=== PATIENT | female | born 1950 | race Hispanic/Latino ===

== ENCOUNTER 2017-02-28 09:25 | Day surgery (SDC) | payer MEDICARE, BC ==
[2016-12-19 11:08] VITALS: BMI 27.2
[2017-02-28] MEDS ORDERED: Propofol 10 mg/ml Inj (20 ML) ONE (09:55)
[2017-02-28 10:54] VITALS: RESP 16
[2017-02-28 11:31] VITALS: O2SAT 100
[2017-02-28 11:39] VITALS: BP 133/80; PULSE 58; TEMP 97.8
== END 2017-02-28 12:24 | disposition home or self-care (01) ==
LOC: ENDO 09:25
PROVIDERS: ATTEND Specialist
DX: K31.7 Polyp of stomach and duodenum (principal); K21.0 Gastro-esophageal reflux disease with esophagitis; D64.9 Anemia, unspecified; J45.909 Unspecified asthma, uncomplicated; I25.10 Atherosclerotic heart disease of native coronary artery without angina pectoris; E78.00 Pure hypercholesterolemia, unspecified; F32.9 Major depressive disorder, single episode, unspecified; F41.9 Anxiety disorder, unspecified
CPT/HCPCS: 43239; 43251; 88305; 88312; 88342; J2001; J2704; J3010; J7040

== ENCOUNTER 2018-10-22 11:29 | Observation (INO) | payer MEDICARE, BC ==
[2018-10-22 11:43] VITALS: BMI 30.2
[2018-10-22] MEDS ORDERED: Albuterol-Ipratrop 3 mg / 0.5 (3 ml) UD IH STA ×3 (11:58→15:26)
[2018-10-22 12:32] LABS: BASO # 0.02 K/mm3 (0.0-2.0); BASO % 0.2 % (0.0-3.0); EOS # 0.2 (0.0-0.7); EOS % 1.8 % (1.5-5.0); GRAN # 9.03 (1.4-6.5); GRAN % 83.3 % (50.0-68.0); HEMOGLOBIN 12.7 g/dL (12.0-16.0); LYMPH # 0.9 (1.2-3.4); MEAN CELL VOLUME 91.4 fl (80.0-105.0); MEAN CORPUSCULAR HEMOGLOBIN 30.5 pg (25.0-35.0); MEAN CORPUSCULAR HGB CONC 33.3 g/dl (31.0-37.0); MEAN PLATELET VOLUME 8.7 fl (7.0-11.0); MONO # 0.7 (0.1-0.6); MONO % 6.7 % (1.0-6.0); RBC 4.17 10^6/uL (3.5-6.1); RED CELL DISTRIBUTION WIDTH 12.3 % (11.5-14.5); WHITE BLOOD COUNT 10.9 10^3/uL (4.5-11.0)
--- NOTE | 2018-10-22 12:33 | ED PDOC ---
Arrival/HPI - General Chief Complaint: Cough, Cold, Congestion Time Seen by Provider: 10/22/18 11:44 Historian: Patient - History of Present Illness Narrative History of Present Illness (Text): 10/22/18 11:58 67 year old female, with past medical history of asthma, presents to the Emergency department complaining of worsening chest tightness and wheezing since last few days. Patient reports exacerbation of symptoms especially when going to bed, associated with persistent non-productive cough. Patient reports visiting her PMD with the presented symptoms, who subsequently referred patient to the ED for breathing treatments and medical evaluation. As per patient, symptoms are similar to her past episodes of asthma, which usually subside with breathing treatments and steroids. Patient denies any other medical complaints. Patient denies any fevers, chills, headache, dizziness, chest pain, abdominal pain, nausea, vomiting, diarrhea, back pain, neck pain, or any other complaints. PMD: Dr. Lundy Time/Duration: < week Symptom Onset: Gradual Symptom Course: Unchanged Quality: Tightness Activities at Onset: Light Context: Home Past Medical History - Provider Review Nursing Documentation Reviewed: Yes - Infectious Disease Hx of Infectious Diseases: None - Tetanus Immunization Tetanus Immunization: Unknown - Reproductive Menopause: Yes - Cardiac Hx Hypertension: Yes Hx Pacemaker: No - Pulmonary Hx Asthma: Yes - Neurological Hx Paralysis: No - Hematological/Oncological Hx Blood Transfusions: No Hx Blood Transfusion Reaction: No - Musculoskeletal/Rheumatological Hx Musculoskeletal Disorders: Yes (OSTEOPENIA) - Gastrointestinal Hx Gastrointestinal Disorders: Yes Hx Gastroesophageal Reflux: Yes - Psychiatric Hx Anxiety: Yes Hx Depression: Yes Hx Emotional Abuse: No Hx Physical Abuse: No Hx Substance Use: No - Past Surgical History Past Surgical History: No Previous - Surgical History Hx Coronary Stent: Yes (X1) - Anesthesia Hx Anesthesia: Yes Hx Anesthesia Reactions: No Hx Malignant Hyperthermia: No - Suicidal Assessment Feels Threatened In Home Enviroment: No Family/Social History - Physician Review Nursing Documentation Reviewed: Yes Family/Social History: Unknown Family HX Smoking Status: Former Smoker Hx Alcohol Use: Yes (OCCASIONAL WINE) Hx Substance Use: No Allergies/Home Meds Allergies/Adverse Reactions: Allergies No Known Allergies Allergy (Verified 10/22/18 11:53) Home Medications: Home Meds Medication Instructions Recorded Confirmed ALPRAZolam HALF TABLET [Xanax HALF 0.25 mg PO PRN PRN 12/19/16 02/28/17 TABLET] Albuterol HFA [Ventolin HFA 90 2 puff IH COUNT INCLUDES THE [facility] 12/19/16 02/28/17 mcg/actuation (8 g)] Aspirin [Ecotrin] 81 mg PO DAILY 12/19/16 02/28/17 Aspirin/Dipyridamole [Aggrenox 25 1 cer PO BID 12/19/16 02/28/17 MG-200 MG] Beclomethasone Dipropionate [Qvar 2 puff IH COUNT INCLUDES THE [facility] 12/19/16 02/28/17 80 mcg] Escitalopram [Lexapro] 10 mg PO QAM 12/19/16 02/28/17 Lansoprazole [Prevacid] 15 mg PO QAM 12/19/16 02/28/17 Metoprolol Succinate XL [Toprol XL] 25 mg PO COUNT INCLUDES THE [facility] 12/19/16 02/28/17 Rosuvastatin Calcium [Crestor] 40 mg PO COUNT INCLUDES THE [facility] 12/19/16 02/28/17 Review of Systems - Physician Review All systems were reviewed & negative as marked: Yes - Review of Systems Constitutional: absent: Fevers Respiratory: SOB, Cough Cardiovascular: absent: Chest Pain Gastrointestinal: absent: Abdominal Pain, Diarrhea, Nausea, Vomiting Genitourinary Female: absent: Dysuria, Urine Output Changes Musculoskeletal: absent: Back Pain, Neck Pain Skin: absent: Rash Neurological: absent: Headache, Dizziness Physical Exam Vital Signs Reviewed: Yes Vital Signs Temp Pulse Resp BP Pulse Ox 10/22/18 11:42 98.1 F 92 H 20 129/72 90 L Temperature: Afebrile Blood Pressure: Normal Pulse: Regular Respiratory Rate: Normal Appearance: Positive for: Well-Appearing, Non-Toxic, Comfortable Pain Distress: None Mental Status: Positive for: Alert and Oriented X 3 - Systems Exam Head: Present: Atraumatic, Normocephalic Pupils: Present: PERRL Extroacular Muscles: Present: EOMI Conjunctiva: Present: Normal Neck: Present: Normal Range of Motion Respiratory/Chest: Present: Wheezes (High piched expiratory and inspiratory wheeze), Decreased Breath Sounds, Tachypneic (Mildly tachypneic). No: Respiratory Distress, Accessory Muscle Use Cardiovascular: Present: Regular Rate and Rhythm, Normal S1, S2. No: Murmurs Abdomen: No: Tenderness, Distention, Peritoneal Signs Back: Present: Normal Inspection Upper Extremity: Present: Normal Inspection. No: Cyanosis, Edema Lower Extremity: Present: Normal Inspection. No: Edema Neurological: Present: GCS=15, CN II-XII Intact, Speech Normal Skin: Present: Warm, Dry, Normal Color. No: Rashes Psychiatric: Present: Alert, Oriented x 3, Normal Insight, Normal Concentration Medical Decision Making ED Course and Treatment: 10/22/18 11:50 Impression: 67 year old female presents to the Emergency department complaining of wheezing since last few days. Differential Diagnosis included but are not limited to: Asthma exacerbation Plan: -- EKG -- Chest X-ray -- Albuterol -- Solumedrol -- Reassess and disposition Prior Visits: Notes and results from previous visits were reviewed. Progress Notes: 10/22/18 11:39 EKG reviewed by me, shows NSR @ 99bpm, nml intervals and nml axis. No st elevations, no t wave changes. 10/22/18 13:09 Chest X-ray reviewed by radiologist, shows no active disease. Patient given duoneb x3 throughout ED course. 125mg solumedrol ivp also given. On re-eval patient states that she feels better. However when nasal cannula removed patient desaturates to 90-92% on RA. When she ambulates, she desaturates further, into the 80's. She also states that she still feels winded while ambulating. Thus decision made to admit. Patient amenable to this plan. Case discussed with RN for Dr. Lundy, agrees with plan for admission. 10/22/18 17:28 Discussed case with hospitalist Dr. Black, who is aware and agrees with ED management plan, accepts patient under their service. - RAD Interpretation Radiology Orders: 10/22/18 11:58 CHEST PORTABLE [RAD] Stat Java Lead Architect: Radiologist - EKG Interpretation Interpreted by ED Physician: Yes Type: 12 lead EKG - Medication Orders Current Medication Orders: Discontinued Medications Albuterol/Ipratropium (Duoneb 3 Mg/0.5 Mg (3 Ml) Ud) 3 ml IH STAT STA Stop: 10/22/18 11:59 Methylprednisolone (Solu-Medrol) 125 mg IVP STAT STA Stop: 10/22/18 11:59 - Scribe Statement The provider has reviewed the documentation as recorded by the Scribe Tasfia Juanis. All medical record entries made by the Dario were at my direction and personally dictated by me. I have reviewed the chart and agree that the record accurately reflects my personal performance of the history, physical exam, medical decision making, and the department course for this patient. I have also personally directed, reviewed, and agree with the discharge instructions and disposition. Disposition/Present on Arrival - Present on Arrival Any Indicators Present on Arrival: No History of DVT/PE: No History of Uncontrolled Diabetes: No Urinary Catheter: No History of Decub. Ulcer: No History Surgical Site Infection Following: None - Disposition Have Diagnosis and Disposition been Completed?: Yes Diagnosis: Asthma exacerbation Disposition Time: 17:30 Condition: STABLE Referrals: Burt Lundy MD [Primary Care Provider] - Follow up with primary Forms: [employer] (Estonian)
[2018-10-22 12:43] LABS: BLOOD UREA NITROGEN 16 mg/dL (7-21); CALCIUM 9.4 mg/dL (8.4-10.5); GFR NON-AFRICAN AMERICAN > 60
--- NOTE | 2018-10-22 12:52 | RAD ---
Date of service: 10/22/2018 HISTORY: dyspnea COMPARISON: 12/06/2017 FINDINGS: LUNGS: No active pulmonary disease. PLEURA: No significant pleural effusion identified, no pneumothorax apparent. CARDIOVASCULAR: Minimal aortic calcification Mild cardiomegaly no pulmonary vascular congestion. OSSEOUS STRUCTURES: No significant abnormalities. VISUALIZED UPPER ABDOMEN: Normal. OTHER FINDINGS: None. IMPRESSION: No active disease.
[2018-10-22] MEDS ORDERED: Albuterol-Ipratrop 3 mg / 0.5 (3 ml) UD IH PRN (18:39)
--- NOTE | 2018-10-22 18:46 | CARD ---
APPROVED REPORT Date of service: 10/22/2018 EKG Measurement Heart [id number] <Conclusion> Normal sinus rhythm Low voltage QRS Borderline ECG
--- NOTE | 2018-10-22 18:50 | CP.PCM.HP ---
<Royal Batista - Last Filed: 10/22/18 20:12> History of Present Illness - History of Present Illness History of Present Illness: Royal Batista, PGY-1 History and Physical for the Hospitalist Service Ms. Croft is a 67 F with PMHx of asthma who presents with chest tightness and shortness of breath that began last night. Patient reports that she was sleeping and was awoken by consistent nonproductive cough. Patient states that she visited her PCP earlier this morning who then told her to come to ED for evaluation and treatment. Patient reports shortness of breath, sinus pressure and chest tightness is similar to earlier episodes of asthma that usually resolves with breathing treatments and steroids. Patient denies chest pain, dizziness, headache, abdominal pain, nausea, vomiting, back pain, changes in urinary or bowel habits. Patient reports that she is awoken from sleep about 3-4 times per month from asthma and uses her rescue inhaler on those ocassions. She denies ever being hospitalized before for these exacerbations. Patient has never been intubated. Patient reports that she experiences these episodes usually around changes in season once or twice a year controlled by medications and inhalers. PMHx: Asthma, CVA 2013 without residual deficit PSHx: denies All: denies Meds: see MAR Social: former smoker 1pk/day x25 years, quit 20 years ago, denies ETOH and tobacco PCP: Dr. Merino Present on Admission - Present on Admission Any Indicators Present on Admission: No Review of Systems - Review of Systems Review of Systems: 12 point ROS completed and negative except as described in HPI. Past Patient History - Infectious Disease Hx of Infectious Diseases: None - Tetanus Immunizations Tetanus Immunization: Unknown - Past Social History Smoking Status: Former Smoker - CARDIAC Hx Hypertension: Yes Hx Pacemaker: No - PULMONARY Hx Asthma: Yes - NEUROLOGICAL Hx Paralysis: No - HEMATOLOGICAL/ONCOLOGICAL Hx Blood Transfusions: No Hx Blood Transfusion Reaction: No - MUSCULOSKELETAL/RHEUMATOLOGICAL Hx Musculoskeletal Disorders: Yes (OSTEOPENIA) - GASTROINTESTINAL Hx Gastrointestinal Disorders: Yes Hx Gastroesophageal Reflux: Yes - PSYCHIATRIC Hx Anxiety: Yes Hx Depression: Yes Hx Emotional Abuse: No Hx Physical Abuse: No Hx Substance Use: No - SURGICAL HISTORY Hx Coronary Stent: Yes (X1) - ANESTHESIA Hx Anesthesia: Yes Hx Anesthesia Reactions: No Hx Malignant Hyperthermia: No Meds Allergies/Adverse Reactions: Allergies Allergy/AdvReac Type Severity Reaction Status Date / Time No Known Allergies Allergy Verified 10/22/18 11:53 Physical Exam - Constitutional Appears: Well, Non-toxic, No Acute Distress - Head Exam Head Exam: ATRAUMATIC, NORMAL INSPECTION, NORMOCEPHALIC - Eye Exam Eye Exam: EOMI, Normal appearance Pupil Exam: PERRL - ENT Exam ENT Exam: Mucous Membranes Moist - Neck Exam Neck exam: Positive for: Normal Inspection - Respiratory Exam Respiratory Exam: Decreased Breath Sounds, Wheezes, NORMAL BREATHING PATTERN - Cardiovascular Exam Cardiovascular Exam: RRR, +S1, +S2 - GI/Abdominal Exam GI & Abdominal Exam: Soft. absent: Distended, Firm, Guarding, Rebound, Rigid, Tenderness - Extremities Exam Extremities exam: Positive for: full ROM. Negative for: joint swelling, pedal edema - Back Exam Back exam: absent: CVA tenderness (L), CVA tenderness (R), paraspinal tenderness - Neurological Exam Neurological exam: Alert, Oriented x3 - Psychiatric Exam Psychiatric exam: Normal Affect, Normal Mood - Skin Skin Exam: Dry, Intact, Normal Color, Warm Results - Vital Signs Recent Vital Signs: Last Vital Signs Temp 98.1 F 10/22/18 11:42 Pulse 91 H 10/22/18 16:10 Resp 18 10/22/18 16:10 BP 148/84 10/22/18 16:10 Pulse Ox 95 10/22/18 16:10 - Labs Result Diagrams: 10/22/18 12:10 10/22/18 12:10 Labs: Laboratory Results - last 24 hr 10/22/18 10/22/18 12:10 12:10 WBC 10.9 RBC 4.17 Hgb 12.7 Hct 38.1 MCV 91.4 MCH 30.5 MCHC 33.3 RDW 12.3 Plt Count 247 MPV 8.7 Gran % 83.3 H Lymph % (Auto) 8.0 L [place] % (Auto) 6.7 H Eos % (Auto) 1.8 Baso % (Auto) 0.2 Gran # 9.03 H Lymph # (Auto) 0.9 L [place] # (Auto) 0.7 H Eos # (Auto) 0.2 Baso # (Auto) 0.02 Sodium 140 Potassium 4.1 Chloride 104 Carbon Dioxide 27 Anion Gap 12 BUN 16 Creatinine 0.7 Est GFR ( Amer) > 60 Est GFR (Non-Af Amer) > 60 Random Glucose 115 H Calcium 9.4 Assessment & Plan - Assessment and Plan (Free Text) Assessment: 67 F with PMHx of asthma who presents with asthma exacerbation. Patient currently on nasal cannula with improvement of symptoms. Asthma Exacerbation On 2 L NC, wheezing, improved shortness of breath from admission Duonebs q6 scheduled and q2 PRN Solu-medrol 40 mg IV q8 Flonase f/u AM labs Cough Robitussin DM 10 q4h PRN Hx of CVA ASA 81 Aggrenox 25-200 BID Toprol XL 25 mg AM HLD F/u home med Crestor 40 mg AM Anxiety Xanax 0.25 q8 PRN Lexapro 10 mg in AM Diet HHD GI/DVT ppx Protonix 40 mg SCDs Patient seen, case reviewed, and plan approved by Dr. Moctezuma. Royal Batista, PGY-1 <Earnestine Black - Last Filed: 10/23/18 14:40> Results - Vital Signs Recent Vital Signs: Last Vital Signs Temp 97.6 F 10/23/18 12:00 Pulse 79 10/23/18 12:00 Resp 20 10/23/18 12:00 BP 133/77 10/23/18 12:00 Pulse Ox 97 10/23/18 05:51 - Labs Result Diagrams: 10/23/18 05:30 10/23/18 05:30 Labs: Laboratory Results - last 24 hr 10/23/18 10/23/18 05:30 05:30 WBC 7.8 D RBC 3.86 Hgb 11.6 L Hct 35.3 L MCV 91.5 MCH 30.1 MCHC 32.9 RDW 12.6 Plt Count 262 MPV 8.8 Sodium 139 Potassium 4.4 Chloride 105 Carbon Dioxide 27 Anion Gap 12 BUN 17 Creatinine 0.7 Est GFR ( Amer) > 60 Est GFR (Non-Af Amer) > 60 Random Glucose 132 H Calcium 9.5 Attending/Attestation - Attestation I have personally seen and examined this patient.: Yes I have fully participated in the care of the patient.: Yes I have reviewed all pertinent clinical information: Yes Notes (Text): 10/23/18 14:34 attending note; Patient seen and examined with resident in ER. Patient is alert and awake. Complaining of cough and wheezing. Patient also complaining of exertional dyspnea. denies any fevers, chills. Denies any sputum production. Denies any urinary, bowel complaints. Patient is a 67 year old Female with PMHx of asthma, TIA, anxiety depression is admitted with acute asthma exacerbation. Patient denies any fevers, chills. Respiratory status is improving after DuoNeb treatment on IV steroids. Admit to remote telemetry. Monitor closely. Continue oxygen. Cough; continue Robitussin. Continue GI prophylaxis with Protonix. anxiety depression; continue Xanax and lexapro. upon discharge patient will follow up with PMD Dr. merino.
[2018-10-22] MEDS: Aspirin-Dipyridamole 200-25 mg ER Cap PO SCH (19:19)
[2018-10-22] MEDS: Albuterol-Ipratrop 3 mg / 0.5 (3 ml) UD IH SCH (20:40)
[2018-10-22] MEDS: MethylPREDNISolone 40 mg Vial IVP SCH (22:26)
[2018-10-23] MEDS: Albuterol-Ipratrop 3 mg / 0.5 (3 ml) UD IH SCH ×4 (01:11→20:20)
[2018-10-23 05:53] LABS: HEMOGLOBIN 11.6 g/dL (12.0-16.0); MEAN CELL VOLUME 91.5 fl (80.0-105.0); MEAN CORPUSCULAR HEMOGLOBIN 30.1 pg (25.0-35.0); MEAN CORPUSCULAR HGB CONC 32.9 g/dl (31.0-37.0); MEAN PLATELET VOLUME 8.8 fl (7.0-11.0); RBC 3.86 10^6/uL (3.5-6.1); RED CELL DISTRIBUTION WIDTH 12.6 % (11.5-14.5); WHITE BLOOD COUNT 7.8 10^3/uL (4.5-11.0)
[2018-10-23 06:03] VITALS: O2SAT 97
[2018-10-23 06:03] LABS: BLOOD UREA NITROGEN 17 mg/dL (7-21); CALCIUM 9.5 mg/dL (8.4-10.5); GFR NON-AFRICAN AMERICAN > 60
[2018-10-23] MEDS: MethylPREDNISolone 40 mg Vial IVP SCH ×3 (06:50→21:17)
[2018-10-23] MEDS: guaiFENesin DM 200 mg-20 mg/10 ml UD PO PRN ×2 (06:54→21:23)
[2018-10-23] MEDS: Aspirin-Dipyridamole 200-25 mg ER Cap PO SCH ×3 (09:53→21:18)
[2018-10-23] MEDS: Fluticasone Nasal 50 mcg/Spray NS SCH (09:53)
[2018-10-23] MEDS: Metoprolol Succinate 25 mg XL Tab PO SCH (09:53)
[2018-10-23] MEDS: Non Formulary Medication (Rosuvastatin Calcium [Crestor] 40 MG) PO SCH (09:54)
--- NOTE | 2018-10-23 12:24 | CP.PCM.PN ---
Subjective - Date & Time of Evaluation Date of Evaluation: 10/23/18 Time of Evaluation: 10:00 - Subjective Subjective: Clinical Care Coordination Note seen and examined 67 y/o F admitted to ED for asthma exacerbation post a coughing fit as per patient which occurred in the night associated with some chest tightnes and wheezing. As per patient, symptoms are similar to her past episodes of asthma, which usually subside with breathing treatments and steroids. PMHx Asthma. Patient states s/s improved this am, denies any fevers, chills, VASQUEZ, dizziness, SOB, hemoptysis, chest pain, abdominal pain, N/V/D, hematemesis or rectal bleeding. Objective - Vital Signs/Intake and Output Vital Signs (last 24 hours): Temp Pulse Resp BP Pulse Ox 97.6 F 79 20 133/77 97 10/23/18 12:00 10/23/18 12:00 10/23/18 12:00 10/23/18 12:00 10/23/18 05:51 Intake and Output: 10/23/18 10/23/18 06:59 18:59 Intake Total 200 Balance 200 - Medications Medications: Current Medications Albuterol/Ipratropium (Duoneb 3 Mg/0.5 Mg (3 Ml) Ud) 3 ml IH Q2H PRN PRN Reason: Shortness of Breath Albuterol/Ipratropium (Duoneb 3 Mg/0.5 Mg (3 Ml) Ud) 3 ml IH [id number] [facility] Last Admin: 10/23/18 07:17 Dose: 3 ml Alprazolam (Xanax) 0.25 mg PO Q8H PRN PRN Reason: Anxiety Last Admin: 10/22/18 22:27 Dose: 0.25 mg Aspirin (Ecotrin) 81 mg PO DAILY [facility] Last Admin: 10/23/18 09:53 Dose: 81 mg Dipyridamole/Aspirin (Aggrenox 25-200 Mg) 1 ea PO BID [facility] Last Admin: 10/23/18 09:53 Dose: 1 ea Escitalopram Oxalate (Lexapro) 10 mg PO QAM [facility] Last Admin: 10/23/18 09:53 Dose: 10 mg Fluticasone Propionate (Flonase) 1 actuation NS DAILY [facility] Last Admin: 10/23/18 09:53 Dose: 1 actuation Guaifenesin/Dextromethorphan (Robitussin Dm) 10 ml PO Q4H PRN PRN Reason: Cough Last Admin: 10/23/18 06:54 Dose: 10 ml Loratadine (Claritin) 10 mg PO DAILY [facility] Methylprednisolone (Solu-Medrol) 40 mg IVP Q8 [facility] Last Admin: 10/23/18 06:50 Dose: 40 mg Metoprolol Succinate (Toprol Xl) 25 mg PO QAM [facility] Last Admin: 10/23/18 09:53 Dose: 25 mg Montelukast Sodium (Singulair) 10 mg PO HS [facility] Non-Formulary Medication (Rosuvastatin Calcium [Crestor]) 40 mg PO QAM [facility] Last Admin: 10/23/18 09:54 Dose: Not Given Pantoprazole Sodium (Protonix Ec Tab) 20 mg PO 0600 [facility] - Labs Labs: 10/23/18 05:30 10/23/18 05:30 - Constitutional Appears: Well, Non-toxic, No Acute Distress - Head Exam Head Exam: ATRAUMATIC, NORMOCEPHALIC - Eye Exam Eye Exam: EOMI, Normal appearance, PERRL Pupil Exam: NORMAL ACCOMODATION - Neck Exam Neck Exam: Full ROM - Respiratory Exam Respiratory Exam: Decreased Breath Sounds, Clear to Ausculation Bilateral, Prolonged Expiratory Phase, NORMAL BREATHING PATTERN Additional comments: slight expiratory wheeze - Cardiovascular Exam Cardiovascular Exam: REGULAR RHYTHM, +S1, +S2 - GI/Abdominal Exam GI & Abdominal Exam: Soft, Normal Bowel Sounds - Rectal Exam Rectal Exam: Deferred - Extremities Exam Extremities Exam: Full ROM, Normal Capillary Refill - Neurological Exam Neurological Exam: Alert, Awake, CN II-XII Intact, Normal Gait, Oriented x3 Neuro motor strength exam: Left Upper Extremity: 5, Right Upper Extremity: 5, Left Lower Extremity: 5, Right Lower Extremity: 5 - Psychiatric Exam Psychiatric exam: Normal Affect, Normal Mood - Skin Skin Exam: Dry, Intact, Normal Color, Warm Assessment and Plan - Assessment and Plan (Free Text) Assessment: A: asthma exacerbation Plan: P: continue medications as per MAR albuterol solumedrol singular claritin peak flow x 1 will follow closely
--- NOTE | 2018-10-23 13:10 | CP.PCM.PN ---
<Lois Dillon - Last Filed: 10/23/18 13:05> Subjective - Date & Time of Evaluation Date of Evaluation: 10/23/18 Time of Evaluation: 13:05 - Subjective Subjective: INTERNAL MEDICINE PROGRESS NOTE FOR DR. RAFAT Dillon PGY1 Pt seen and examined at bedside this am. She reports significant improvement in her shortness of breath. She is resting comfortably in bed, without NC. She is tolerating her diet. She will undergo 6 min walk test. 12 point ROS is otherwise negative. Objective - Vital Signs/Intake and Output Vital Signs (last 24 hours): Temp Pulse Resp BP Pulse Ox 97.6 F 79 20 133/77 97 10/23/18 12:00 10/23/18 12:00 10/23/18 12:00 10/23/18 12:00 10/23/18 05:51 Intake and Output: 10/23/18 10/23/18 06:59 18:59 Intake Total 200 Balance 200 - Medications Medications: Current Medications Albuterol/Ipratropium (Duoneb 3 Mg/0.5 Mg (3 Ml) Ud) 3 ml IH Q2H PRN PRN Reason: Shortness of Breath Albuterol/Ipratropium (Duoneb 3 Mg/0.5 Mg (3 Ml) Ud) 3 ml IH [id number] [facility] Last Admin: 10/23/18 07:17 Dose: 3 ml Alprazolam (Xanax) 0.25 mg PO Q8H PRN PRN Reason: Anxiety Last Admin: 10/22/18 22:27 Dose: 0.25 mg Aspirin (Ecotrin) 81 mg PO DAILY [facility] Last Admin: 10/23/18 09:53 Dose: 81 mg Dipyridamole/Aspirin (Aggrenox 25-200 Mg) 1 ea PO BID [facility] Last Admin: 10/23/18 09:53 Dose: 1 ea Escitalopram Oxalate (Lexapro) 10 mg PO QAM [facility] Last Admin: 10/23/18 09:53 Dose: 10 mg Fluticasone Propionate (Flonase) 1 actuation NS DAILY [facility] Last Admin: 10/23/18 09:53 Dose: 1 actuation Guaifenesin/Dextromethorphan (Robitussin Dm) 10 ml PO Q4H PRN PRN Reason: Cough Last Admin: 10/23/18 06:54 Dose: 10 ml Loratadine (Claritin) 10 mg PO DAILY [facility] Last Admin: 10/23/18 12:37 Dose: 10 mg Methylprednisolone (Solu-Medrol) 40 mg IVP Q8 [facility] Last Admin: 10/23/18 06:50 Dose: 40 mg Metoprolol Succinate (Toprol Xl) 25 mg PO QAM [facility] Last Admin: 10/23/18 09:53 Dose: 25 mg Montelukast Sodium (Singulair) 10 mg PO HS [facility] Non-Formulary Medication (Rosuvastatin Calcium [Crestor]) 40 mg PO QAM [facility] Last Admin: 10/23/18 09:54 Dose: Not Given Pantoprazole Sodium (Protonix Ec Tab) 20 mg PO 0600 [facility] - Labs Labs: 10/23/18 05:30 10/23/18 05:30 - Constitutional Appears: Well, Non-toxic, No Acute Distress - Head Exam Head Exam: NORMAL INSPECTION, NORMOCEPHALIC - Eye Exam Eye Exam: EOMI, Normal appearance - ENT Exam ENT Exam: Mucous Membranes Moist - Neck Exam Neck Exam: Normal Inspection - Respiratory Exam Respiratory Exam: Wheezes, NORMAL BREATHING PATTERN - Cardiovascular Exam Cardiovascular Exam: REGULAR RHYTHM, +S1, +S2 - GI/Abdominal Exam GI & Abdominal Exam: Soft. absent: Tenderness - Extremities Exam Extremities Exam: Normal Inspection. absent: Calf Tenderness - Back Exam Back Exam: NORMAL INSPECTION - Neurological Exam Neurological Exam: Alert, Awake, Oriented x3 - Skin Skin Exam: Dry, Intact, Warm Assessment and Plan - Assessment and Plan (Free Text) Assessment: 67 F with PMHx of asthma who presents with asthma exacerbation. Patient kinsey hickey on nasal cannula with improvement of symptoms. Plan: Asthma Exacerbation On 2 L NC, wheezing, improved shortness of breath from admission Duonebs q6 scheduled and q2 PRN Fluticasone Solu-medrol 40 mg IV q8 6 minute walk test today. See if pt requires O2 Cough Robitussin DM 10 q4h PRN start Loratadine start singulair start protonix (pt takes at home) Hx of CVA ASA 81 Aggrenox 25-200 BID Toprol XL 25 mg AM HLD continue home rosuvastatin Anxiety Xanax 0.25 q8 PRN Lexapro 10 mg in AM Diet HHD GI/DVT ppx Protonix 40 mg SCDs Case seen, examined and discussed with attending physician, Dr. Black <Earnestine Black - Last Filed: 10/23/18 14:46> Objective - Vital Signs/Intake and Output Vital Signs (last 24 hours): Temp Pulse Resp BP Pulse Ox 97.6 F 79 20 133/77 97 10/23/18 12:00 10/23/18 12:00 10/23/18 12:00 10/23/18 12:00 10/23/18 05:51 Intake and Output: 10/23/18 10/23/18 06:59 18:59 Intake Total 200 Balance 200 - Medications Medications: Current Medications Albuterol/Ipratropium (Duoneb 3 Mg/0.5 Mg (3 Ml) Ud) 3 ml IH Q2H PRN PRN Reason: Shortness of Breath Albuterol/Ipratropium (Duoneb 3 Mg/0.5 Mg (3 Ml) Ud) 3 ml IH [id number] [facility] Last Admin: 10/23/18 13:07 Dose: 3 ml Alprazolam (Xanax) 0.25 mg PO Q8H PRN PRN Reason: Anxiety Last Admin: 10/22/18 22:27 Dose: 0.25 mg Aspirin (Ecotrin) 81 mg PO DAILY [facility] Last Admin: 10/23/18 09:53 Dose: 81 mg Dipyridamole/Aspirin (Aggrenox 25-200 Mg) 1 ea PO BID [facility] Last Admin: 10/23/18 09:53 Dose: 1 ea Escitalopram Oxalate (Lexapro) 10 mg PO QAM [facility] Last Admin: 10/23/18 09:53 Dose: 10 mg Fluticasone Propionate (Flonase) 1 actuation NS DAILY [facility] Last Admin: 10/23/18 09:53 Dose: 1 actuation Guaifenesin/Dextromethorphan (Robitussin Dm) 10 ml PO Q4H PRN PRN Reason: Cough Last Admin: 10/23/18 06:54 Dose: 10 ml Loratadine (Claritin) 10 mg PO DAILY [facility] Last Admin: 10/23/18 12:37 Dose: 10 mg Methylprednisolone (Solu-Medrol) 40 mg IVP Q8 [facility] Last Admin: 10/23/18 13:09 Dose: 40 mg Metoprolol Succinate (Toprol Xl) 25 mg PO QAM [facility] Last Admin: 10/23/18 09:53 Dose: 25 mg Montelukast Sodium (Singulair) 10 mg PO [facility] Non-Formulary Medication (Rosuvastatin Calcium [Crestor]) 40 mg PO QAM [facility] Last Admin: 10/23/18 09:54 Dose: Not Given Pantoprazole Sodium (Protonix Ec Tab) 20 mg PO 0600 [facility] - Labs Labs: 10/23/18 05:30 10/23/18 05:30 Attending/Attestation - Attestation I have personally seen and examined this patient.: Yes I have fully participated in the care of the patient.: Yes I have reviewed all pertinent clinical information, including history, physical exam and plan: Yes Notes (Text): 10/23/18 14:42 attending note; Patient seen and examined with resident. patient's daughter by the bedside. Patient is alert and awake. cough and wheezing is improving. denies any chest pain. denies any fevers, chills. Denies any sputum production. Denies any urinary, bowel complaints. Patient is a 67 year old Female with PMHx of asthma, TIA, anxiety depression is admitted with acute asthma exacerbation. Respiratory status is improving after DuoNeb treatment on IV steroids. Continue oxygen prn. chest x-ray is negative. Patient is afebrile and nontoxic. WBC count is normal. Cough; continue Robitussin. Continue GI prophylaxis with Protonix. anxiety depression; continue Xanax and lexapro. upon discharge patient will follow up with PMD Dr. merino. 10/23/18 14:44
[2018-10-24] MEDS: Albuterol-Ipratrop 3 mg / 0.5 (3 ml) UD IH SCH ×2 (01:03→07:42)
[2018-10-24] MEDS: MethylPREDNISolone 40 mg Vial IVP SCH (05:51)
[2018-10-24] MEDS: guaiFENesin DM 200 mg-20 mg/10 ml UD PO PRN (05:51)
[2018-10-24] MEDS ORDERED: Pantoprazole 20 mg EC Tab PO SCH (06:00)
[2018-10-24 06:49] LABS: BLOOD UREA NITROGEN 21 mg/dL (7-21); CALCIUM 9.7 mg/dL (8.4-10.5); GFR NON-AFRICAN AMERICAN > 60
[2018-10-24 06:51] LABS: HEMOGLOBIN 11.6 g/dL (12.0-16.0); MEAN CELL VOLUME 91.7 fl (80.0-105.0); MEAN CORPUSCULAR HEMOGLOBIN 30.1 pg (25.0-35.0); MEAN CORPUSCULAR HGB CONC 32.9 g/dl (31.0-37.0); MEAN PLATELET VOLUME 9.2 fl (7.0-11.0); RBC 3.85 10^6/uL (3.5-6.1); RED CELL DISTRIBUTION WIDTH 12.7 % (11.5-14.5); WHITE BLOOD COUNT 13.2 10^3/uL (4.5-11.0)
[2018-10-24] MEDS ORDERED: MethylPREDNISolone 40 mg Vial IVP SCH (10:00)
[2018-10-24] MEDS: Metoprolol Succinate 25 mg XL Tab PO SCH (10:10)
[2018-10-24] MEDS: Aspirin-Dipyridamole 200-25 mg ER Cap PO SCH (10:10)
[2018-10-24] MEDS: Fluticasone Nasal 50 mcg/Spray NS SCH (10:10)
[2018-10-24] MEDS: Non Formulary Medication (Rosuvastatin Calcium [Crestor] 40 MG) PO SCH (10:11)
[2018-10-24] MEDS ORDERED: Pneumococcal 23-Valent Vaccine IM ONE (12:13)
[2018-10-24 12:28] VITALS: BP 135/69; PULSE 71; RESP 19; TEMP 98.7
--- NOTE | 2018-10-24 13:23 | CP.PCM.DIS ---
<Lois Dillon - Last Filed: 10/24/18 13:17> Provider - Provider Date of Admission: 10/22/18 18:08 Attending physician: Earnestine Black MD Primary care physician: Burt Merino MD Time Spent in preparation of Discharge (in minutes): 45 Diagnosis - Discharge Diagnosis (1) Asthma exacerbation Status: Resolved Priority: Medium Hospital Course - Lab Results Lab Results: Most Recent Lab Values WBC 13.2 10^3/uL (4.5-11.0) H D 10/24/18 06:00 RBC 3.85 10^6/uL (3.5-6.1) 10/24/18 06:00 Hgb 11.6 g/dL (12.0-16.0) L 10/24/18 06:00 Hct 35.3 % (36.0-48.0) L 10/24/18 06:00 MCV 91.7 fl (80.0-105.0) 10/24/18 06:00 MCH 30.1 pg (25.0-35.0) 10/24/18 06:00 MCHC 32.9 g/dl (31.0-37.0) 10/24/18 06:00 RDW 12.7 % (11.5-14.5) 10/24/18 06:00 Plt Count 301 10^3/uL (120.0-450.0) 10/24/18 06:00 MPV 9.2 fl (7.0-11.0) 10/24/18 06:00 Gran % 83.3 % (50.0-68.0) H 10/22/18 12:10 Lymph % (Auto) 8.0 % (22.0-35.0) L 10/22/18 12:10 [place] % (Auto) 6.7 % (1.0-6.0) H 10/22/18 12:10 Eos % (Auto) 1.8 % (1.5-5.0) 10/22/18 12:10 Baso % (Auto) 0.2 % (0.0-3.0) 10/22/18 12:10 Gran # 9.03 (1.4-6.5) H 10/22/18 12:10 Lymph # (Auto) 0.9 (1.2-3.4) L 10/22/18 12:10 [place] # (Auto) 0.7 (0.1-0.6) H 10/22/18 12:10 Eos # (Auto) 0.2 (0.0-0.7) 10/22/18 12:10 Baso # (Auto) 0.02 K/mm3 (0.0-2.0) 10/22/18 12:10 Sodium 140 mmol/L (132-148) 10/24/18 06:00 Potassium 4.4 mmol/L (3.6-5.0) 10/24/18 06:00 Chloride 104 mmol/L (98-107) 10/24/18 06:00 Carbon Dioxide 27 mmol/L (21-33) 10/24/18 06:00 Anion Gap 13 (10-20) 10/24/18 06:00 BUN 21 mg/dL (7-21) 10/24/18 06:00 Creatinine 0.7 mg/dl (0.7-1.2) 10/24/18 06:00 Est GFR ( Amer) > 60 10/24/18 06:00 Est GFR (Non-Af Amer) > 60 10/24/18 06:00 Random Glucose 118 mg/dL (70-110) H 10/24/18 06:00 Calcium 9.7 mg/dL (8.4-10.5) 10/24/18 06:00 - Hospital Course Hospital Course: Upon Admission: Ms. Croft is a 67 F with PMHx of asthma who presents with chest tightness and shortness of breath that began last night. Patient reports that she was sleeping and was awoken by consistent nonproductive cough. Patient states that she visited her PCP earlier this morning who then told her to come to ED for evaluation and treatment. Patient reports shortness of breath, sinus pressure and chest tightness is similar to earlier episodes of asthma that usually resolves with breathing treatments and steroids. Patient denies chest pain, dizziness, headache, abdominal pain, nausea, vomiting, back pain, changes in urinary or bowel habits. Patient reports that she is awoken from sleep about 3-4 times per month from asthma and uses her rescue inhaler on those ocassions. She denies ever being hospitalized before for these exacerbations. Patient has never been intubated. Patient reports that she experiences these episodes usually around changes in season once or twice a year controlled by medications and inhalers. Hospital Course: Pts chest xray and labwork were within normal limits. WBC increased, likely secondary to IV steroids. Pt was treated with duoneb treatments, scheduled and as needed. She was also started on loratadine, singulair and flonse during the hospital stay. She was given IV steroids after 1 day d/t wheezing. She was continued on her home medications. Her shortness of breath, wheezing and cough had improved significantly throughout hospital course. Upon Discharge: Pts was evaluated and treated for asthma exacerbation. She no longer complains of shortness of breath. She has a mild cough after humidified NC administration. Vital signs are stable. Labs show increased WBC likely secondary to steroids. She is to be discharged on medrol dose pack, singulair, albuterol and qvar. Discharge Exam - Head Exam Head Exam: NORMAL INSPECTION, NORMOCEPHALIC - Eye Exam Eye Exam: EOMI, Normal appearance - ENT Exam ENT Exam: Mucous Membranes Moist - Neck Exam Neck exam: Normal Inspection - Respiratory Exam Respiratory Exam: Clear to PA & Lateral, NORMAL BREATHING PATTERN - Cardiovascular Exam Cardiovascular Exam: REGULAR RHYTHM, +S1, +S2 - GI/Abdominal Exam GI & Abdominal Exam: Soft. absent: Distended - Extremities Exam Extremities exam: normal inspection - Back Exam Back exam: NORMAL INSPECTION - Neurological Exam Neurological exam: Alert, Oriented x3 - Psychiatric Exam Psychiatric exam: Normal Affect, Normal Mood - Skin Skin Exam: Dry, Intact, Warm Discharge Plan - Discharge Medications Prescriptions: Albuterol 0.042% [Albuterol 0.042% Inhal Ashley (1.25mg/3ml) UD] 3 ml IH QD6 PRN #20 ashley PRN Reason: Shortness Of Breath Guaifenesin/Dextromethorphan [Robitussin Cough-Chest Dm Liq] 5 ml PO Q6 PRN #1 bottle PRN Reason: Cough Lansoprazole [Prevacid] 15 mg PO QAM #14 capsule. Loratadine [Claritin] 10 mg PO DAILY #14 tab Methylprednisolone [Medrol Dose Pack (21 tabs)] 4 mg PO DAILY #21 mg Montelukast [Singulair] 10 mg PO HS #14 tab Rosuvastatin Calcium [Crestor] 40 mg PO QAM #14 tablet - Follow Up Plan Condition: STABLE Disposition: HOME/ ROUTINE Instructions: Pneumococcal Polysaccharide Vaccine (23-Valent), Asthma (DC) Additional Instructions: Please follow these instructions upon discharge from the hospital: Please follow-up with your primary care doctor, Dr. Merino, within 1 week of being discharged from the hospital. Please inform your doctor that you were recently admitted for acute asthma exacerbation Please resume the medications that you were taking at home. You have been started on a new medication called methylprednisolone (medrol dosepak) that you should take over the course of 6 days after you have been discharged. Please take this medication as directed If your symptoms return, please return to the nearest emergency room. Referrals: Burt Merino MD [Primary Care Provider] - <Earnestine Black - Last Filed: 10/24/18 16:20> Provider - Provider Date of Admission: 10/22/18 18:08 Attending physician: Earnestine Black MD Primary care physician: Burt Merino MD Hospital Course - Lab Results Lab Results: Most Recent Lab Values WBC 13.2 10^3/uL (4.5-11.0) H D 10/24/18 06:00 RBC 3.85 10^6/uL (3.5-6.1) 10/24/18 06:00 Hgb 11.6 g/dL (12.0-16.0) L 10/24/18 06:00 Hct 35.3 % (36.0-48.0) L 10/24/18 06:00 MCV 91.7 fl (80.0-105.0) 10/24/18 06:00 MCH 30.1 pg (25.0-35.0) 10/24/18 06:00 MCHC 32.9 g/dl (31.0-37.0) 10/24/18 06:00 RDW 12.7 % (11.5-14.5) 10/24/18 06:00 Plt Count 301 10^3/uL (120.0-450.0) 10/24/18 06:00 MPV 9.2 fl (7.0-11.0) 10/24/18 06:00 Gran % 83.3 % (50.0-68.0) H 10/22/18 12:10 Lymph % (Auto) 8.0 % (22.0-35.0) L 10/22/18 12:10 [place] % (Auto) 6.7 % (1.0-6.0) H 10/22/18 12:10 Eos % (Auto) 1.8 % (1.5-5.0) 10/22/18 12:10 Baso % (Auto) 0.2 % (0.0-3.0) 10/22/18 12:10 Gran # 9.03 (1.4-6.5) H 10/22/18 12:10 Lymph # (Auto) 0.9 (1.2-3.4) L 10/22/18 12:10 [place] # (Auto) 0.7 (0.1-0.6) H 10/22/18 12:10 Eos # (Auto) 0.2 (0.0-0.7) 10/22/18 12:10 Baso # (Auto) 0.02 K/mm3 (0.0-2.0) 10/22/18 12:10 Sodium 140 mmol/L (132-148) 10/24/18 06:00 Potassium 4.4 mmol/L (3.6-5.0) 10/24/18 06:00 Chloride 104 mmol/L (98-107) 10/24/18 06:00 Carbon Dioxide 27 mmol/L (21-33) 10/24/18 06:00 Anion Gap 13 (10-20) 10/24/18 06:00 BUN 21 mg/dL (7-21) 10/24/18 06:00 Creatinine 0.7 mg/dl (0.7-1.2) 10/24/18 06:00 Est GFR ( Amer) > 60 10/24/18 06:00 Est GFR (Non-Af Amer) > 60 10/24/18 06:00 Random Glucose 118 mg/dL (70-110) H 10/24/18 06:00 Calcium 9.7 mg/dL (8.4-10.5) 10/24/18 06:00 Attending/Attestation - Attestation I have personally seen and examined this patient.: Yes I have fully participated in the care of the patient.: Yes I have reviewed all pertinent clinical information, including history, physical exam and plan: Yes Notes (Text): 10/24/18 16:19 attending note; Patient seen and examined with resident. Patient is alert and awake. cough and wheezing is improving. denies any chest pain. denies any fevers, chills. Denies any sputum production. Denies any urinary, bowel complaints. Patient is a 67 year old Female with PMHx of asthma, TIA, anxiety depression is admitted with acute asthma exacerbation. Respiratory status is improving after DuoNeb treatment on IV steroids. currently off oxygen. chest x-ray is negative. Patient is afebrile and nontoxic. Cough; continue Robitussin. Continue GI prophylaxis with Protonix. anxiety depression; continue Xanax and lexapro. Discharge home today. Outpatient pulmonary follow-up recommended. Case discussed with PMD in detail. upon discharge patient will follow up with PMD Dr. merino.
== END 2018-10-24 13:30 | disposition home or self-care (01) ==
LOC: ED 11:29 → ERH 18:08 → 2RNO 22:05
PROVIDERS: ADMIT Internal Medicine; ATTEND Internal Medicine
DX: J45.901 Unspecified asthma with (acute) exacerbation (principal); I10 Essential (primary) hypertension; F41.8 Other specified anxiety disorders; K21.9 Gastro-esophageal reflux disease without esophagitis; M85.80 Other specified disorders of bone density and structure, unspecified site; E78.5 Hyperlipidemia, unspecified; Z86.73 Personal history of transient ischemic attack (TIA), and cerebral infarction without residual deficits; Z87.891 Personal history of nicotine dependence; Z79.82 Long term (current) use of aspirin; Z23 Encounter for immunization
CPT/HCPCS: 36415; 71045; 80048; 85025; 85027; 90732; 93005; 94150; 94640; 94760; 96374; 96375; 96376; 99285; C9113; G0009; G0378; J2405; J2920; J2930

== ENCOUNTER 2019-03-12 09:14 | Outpatient (CLI) | payer MEDICARE | END 2019-03-12 09:15 | disposition home or self-care (01) | LOC: LAB 09:14 ==

== ENCOUNTER 2019-04-14 15:15 | Outpatient (CLI) | payer MEDICARE | END 2019-04-14 15:16 | disposition home or self-care (01) | LOC: RAD 15:15 ==